=== PATIENT | male | born 2000 | race Caucasian/White ===

== ENCOUNTER → 2022-01-24 17:09 | Outpatient (BNVA) | payer MEDICAID, SELFPAY | PROVIDERS: Family Provider Family Medicine; PCP Family Medicine; Visit Provider Nurse Practitioner Family | DX: L05.01 Pilonidal cyst with abscess (principal) | CPT/HCPCS: 87070 ==

== ENCOUNTER 2022-01-25 13:33 | Emergency (ER) | payer MEDICAID, SELFPAY ==
[2022-01-25 15:09] VITALS: BP 124/76; PULSE 55; RESP 12; TEMP 36.9; O2SAT 97; BMI 27.7
--- NOTE | 2022-01-25 15:43 | ED_ITS ---
HPI - Skin/Abscess/Foreign Bdy General: Chief complaint: General Medical Stated complaint: Cyst needing drained Time Seen by Provider: 01/25/22 15:22 Source: patient Mode of arrival: ambulatory Limitations: no limitations History of Present Illness: Patient is a 21-year-old male who presents to ED today with a complaint of a possible pilonidal cyst/abscess. Patient states he has had pain and drainage over the past few days. He states he was seen in an outlying facility and recommended to come to the ED. MD complaint: abscess/boil Onset (ago): day(s) Tetanus up to date: yes Location: buttocks Severity: mild Pain Consistency: constant Relieving factors: none Exacerbating factors: other (sitting) Context: none Associated symptoms: Reports no associated symptoms; Deny chills, fever(s), nausea or vomiting Treatments prior to arrival: none Review of Systems Const: Denies: fever(s), chills, body aches, fatigue or malaise GI: Denies: abdominal pain, nausea, vomiting, change in bowel habits, hematochezia or melena Musc: Denies: back pain Skin/Breast: Reports: other (abscess) Physical Exam Const: COMMON NORMALS: no acute distress, average body habitus, patient oriented x3, no limitations, healthy appearing, alert and well nourished GENERAL APPEARANCE: cooperative Resp: COMMON NORMALS: normal respiratory effort and clear to auscultation hedy aterally AUSCULTATION: clear to auscultation bilaterally Cardio: COMMON NORMALS: regular rate and regular rhythm RATE: regular rate RHYTHM: regular rhythm GI: COMMON NORMALS: Normal to inspection, nondistended, normoactive bowel sounds present, Soft to palpation, non-tender, No hepatosplenomegaly present and no masses PALPATION: Yes Soft to palpation and Yes No hepatosplenomegaly p resent OTHER: patient has a very small (probably 1cm) nonerythematous/nonedematous area to left cleft that is draining purulent/serous like material; wound is shallow and open/draining; a single pit distally is present consistent with pilonidal disease; there is no cellulitis present; no foul odor; no obvious areas of fluctuance; area was expressed/probed and small hair collection was removed Neuro: COMMON NORMALS: patient oriented x3 SENSORIUM/ORIENTATION: Yes alert Course Vital Signs: Vital signs: Vital Signs Temperature 98.4 F 01/25/22 15:09 Pulse Rate 76 01/25/22 17:23 Respiratory Rate 16 01/25/22 17:23 Blood Pressure 124/76 01/25/22 15:09 Pulse Oximetry 97 01/25/22 17:23 Oxygen Delivery Me thod 01/25/22 15:09 MDM - Skin/Abscess/Foreign Bdy Medicial Decision Making Although I&D is the mainstay of treatment for pilonidal disease, patient's current cyst/abscess is incredibly small/shallow and already draining adequately. I do not feel incising area at this time would be overly beneficial as I don't feel I would even be able to insert enough packing to make a significant difference. Cultures were obtained and patient will be placed on Bactrim with follow up with general surgery. Return to ED precautions given. Discharge Plan Discharge Patient Disposition: Home Clinical Impression: Pilonidal cyst with abscess Condition: Stable Prescriptions: New Bactrim DS 800-160 mg tablet 2 tab PO BID 7 Days Qty: 28 0RF Discontinued sulfamethoxazole-trimethoprim [Bactrim DS] 800-160 mg tablet 1 tab PO BID 10 Days Qty: 20 0RF Discharge Orders: Discharge ED (Routine); Ordered 01/25/22 Ordered By: Loretta Patiño Referrals: Gurvinder Kwan MD [Primary Care Provider] - Patient Instructions: Pilonidal Cyst (ED), Pilonidal Disease Activity Restrictions/Additional Instructions: As we discussed do sitz baths several times daily to help facilitate drainage. Fill antibiotics tonight and start them immediately. Case management should contact you to set you up with follow-up with a general surgeon. You need to return to the emergency department if abscess continues to worsen despite antibiotic therapy or if you begin to notice worsening swelling, surrounding redness, warmth, significant pain, fevers, or any other concerns you may have. Coding Level of Care Code ED Inclusion Special Educator for Ariela Mueller
[2022-01-25 17:23] VITALS: PULSE 76; RESP 16; O2SAT 97
--- NOTE | 2022-01-26 13:18 | DCPLANNER ---
Addendum entered by Cammy Mahoney 01/30/22 15:08: manager company received the following message from the ortho clinic regarding follow up appointment: Unfortunately due to dr. Barber still not being in Network with [facility] please send referral to a different provider manager company unable to reach patient about being referred to another provider. manager company unable to speak with patient at this time. Original Note: manager company had message to schedule a follow up appointment for patient with general surgery. manager company sent patients information to the front office staff at general surgery. Patients information will be printed and reviewed. Clinic will call patient with appointment information.
== END 2022-01-25 17:30 | disposition home or self-care (01) ==
PROVIDERS: Emergency Provider Physician Assistant; PCP Family Medicine
DX: L05.01 Pilonidal cyst with abscess (principal)
CPT/HCPCS: 87070; 87075; 87205; 99283

== ENCOUNTER 2024-05-16 06:52 | Emergency (ER) | payer SELFPAY ==
[2024-05-16 06:53] VITALS: BP 130/83; PULSE 79; RESP 18; TEMP 36.7; O2SAT 95; BMI 25.8
--- NOTE | 2024-05-16 06:58 | ED_ITS ---
HPI - Dental/Oral General: Chief complaint: Dental/Oral Stated complaint: abscess in mouth Time Seen by Provider: 05/16/24 06:56 History of Present Illness: Patient has a broken front incisor. Left. Pain has been worsening over 4 days. He noticed some swelling around the tooth today. He also has complaints of his heart racing this morning and watery stools for several days. Related Data Previous Rx's ?Medication ?Instructions ?Recorded amoxicillin 500 mg capsule 500 mg PO BID 10 days #20 c aps 05/16/24 diclofenac sodium 50 mg 50 mg PO BID PRN pain #14 ta bs 05/16/24 tablet,delayed release Allergies Allergy/AdvReac Type Severity Reaction Status Date / Time No Known Allergies Allergy Verified 02/13/23 10:32 Review of Systems Narrative: Constitutional symptoms: Negative except as documented in HPI. Skin symptoms: Negative except as documented in HPI. Eye symptoms: Negative except as documented in HPI. ENMT symptoms: Negative except as documented in HPI. Respiratory symptoms: Negative except as documented in HPI. Cardiovascular symptoms: Negative except as documented in HPI. Gastrointestinal symptoms: Negative except as documented in HPI. Genitourinary symptoms: Negative except as documented in HPI. Musculoskeletal symptoms: Negative except as documented in HPI. Neurologic symptoms: Negative except as documented in HPI. Psychiatric symptoms: Negative except as documented in HPI. Endocrine symptoms: Negative except as documented in HPI. Physical Exam Narrative: EXAM NARRATIVE: General: Alert, no acute distress. Skin: warm and dry Head: Normocephalic Neck: Trachea midline Eye: Extraocular movements are intact. Ears, nose, mouth and throat: Oral mucosa moist. Front left incisor is broken has some caries. Poor dentition overall. Respiratory: Respirations are non-labored Musculoskeletal: Normal ROM Neurological: Alert and oriented, No focal neurological deficit observed. Psychiatric: Cooperative, appropriate mood & affect. Course Vital Signs: Vital signs: Vital Signs Temperature 98.1 F 05/16/24 06:53 Pulse Rate 79 05/16/24 06:53 Respiratory Rate 18 05/16/24 06:53 Blood Pressure 130/83 05/16/24 06:53 Pulse Oximetry 95 05/16/24 06:53 Oxygen Delivery Me thod Room Air 05/16/24 06:53 MDM - Dental/Oral Medical Decision Making Assessment and plan: Dental infection - Discharged home - Discussed plan with patient. Answered any questions. - Evaluation and treatment of this problem were appropriate in the emergency setting. No radiology studies performed this visit Discharge Plan Discharge Patient Disposition: Home Clinical Impression: Toothache Condition: Stable Prescriptions: New amoxicillin 500 mg capsule 500 mg PO BID 10 Days Qty: 20 0RF diclofenac sodium 50 mg tablet,delayed release (DR/EC) 50 mg PO BID PRN (Reason: pain) Qty: 14 0RF Discharge Orders: Discharge ED (Routine); Ordered 05/16/24 Ordered By: Anna Rizzo Referrals: Gurvinder Kwan MD [Primary Care Provider] - Discharge Diet: Usual diet Discharge Activity: Increase activity as tolerated Patient Instructions: Toothache (ED), Opioid Safety, Pain Management Activity Restrictions/Additional Instructions: Thank you for choosing [facility] for your healthcare needs today. Please realize this is an emergency room and that we are providing you with a medical screening exam and this may not be complete and all inclusive of all the testing and or work up that you may need to determine your ailment or severity of your illness. You have been screened and evaluated and felt safe for discharge. Health conditi ons do change or evolve sometimes and as such it is important that you follow up with your Primary Doctor to be re checked, 3-5 days is a general good time frame for follow up. You are always welcome to return to the ED for re assessment if your symptoms are worsening or you have new concerns Print Language: Libyan Coding Level of Care Code ED Product Safety Technician for Ariela Mueller
[2024-05-16 07:06] VITALS: BP 130/83; PULSE 86; O2SAT 99
== END 2024-05-16 07:11 | disposition home or self-care (01) ==
PROVIDERS: Emergency Provider Emergency Medicine; PCP Family Medicine
DX: K08.89 Other specified disorders of teeth and supporting structures (principal)
CPT/HCPCS: 99283